=== PATIENT | male | born 1950 | race Caucasian/White ===

== ENCOUNTER → 2016-11-15 09:16 | Outpatient (CLI) | payer MEDICARE, BC ==
[2016-06-20 12:15] VITALS: BMI 19.5
[~2016-11-15 09:16] MED LIST: ALEVE220 MG PO; ATIVAN1 MG PO; DESERYL100 MG PO; HARVONI PO; IMURAN50 MG PO; INDERAL10 MG PO; KENALOG 0.1 % 115 GM TOPICAL; MUCINEX DM ER1 EAC1 PO; PEPCID40 MG PO; ZYRTEC10 MG PO
== END | disposition home or self-care (01) ==
LOC: D.MRI 09:16
DX: K74.60 Unspecified cirrhosis of liver (principal)

== ENCOUNTER → 2017-01-01 10:41 | Outpatient (CLI) | payer MEDICARE, BC ==
[2016-06-20 12:15] VITALS: BMI 19.5
== END | disposition home or self-care (01) ==
LOC: D.LAB 10:41 → D.CT 11:00
DX: R16.0 Hepatomegaly, not elsewhere classified (principal)

== ENCOUNTER 2017-01-18 08:00 | Outpatient (CLI) | payer MEDICARE, BC ==
[~2017-01-18 08:00] MED LIST changes: -DESERYL100 MG PO; -IMURAN50 MG PO
[2017-01-18] MEDS ORDERED: INDERAL10 MG PO (11:22)
[2017-01-18] MEDS ORDERED: DESERYL100 MG PO (11:23)
[2017-01-18] MEDS ORDERED: IMURAN50 MG PO (11:24)
[2017-01-18 17:11] VITALS: BMI 19.2
== END 2017-01-19 23:59 | disposition short-term general hospital (02) ==
LOC: D.RAD 08:00
DX: C22.0 Liver cell carcinoma (principal); B19.20 Unspecified viral hepatitis C without hepatic coma; K74.60 Unspecified cirrhosis of liver

== ENCOUNTER 2017-01-18 10:41 | Inpatient (IN) | payer MEDICARE, BC ==
[~2017-01-18] VITALS: Ht 175.3 cm; Wt 59.1 kg
[2017-01-18] MEDS ORDERED: INDERAL10 MG PO (11:22)
[2017-01-18] MEDS ORDERED: DESERYL100 MG PO (11:23)
[2017-01-18] MEDS ORDERED: IMURAN50 MG PO (11:24)
[2017-01-18 11:33] VITALS: BP 142/67; BMI 19.2
[2017-01-18 12:25] LABS: BASOPHILS 1.1 % (0.0-2.0); EOSINOPHILS 8.6 % (0-7); HEMATOCRIT 37.5 % (42.0-54.0); IMMATURE GRANULOCYTES 0.3 % (0-5); LYMPHOCYTES 29.2 % (15-50); MCH 35.6 pg (26.0-34.0); MCHC 34.7 g/dL (31.0-37.0); MCV 102.7 fL (80.0-100.0); MEAN PLATELET VOLUME 9.1 fL (7.4-10.4); MONOCYTES 10.5 % (2-11); NEUTROPHILS 50.3 % (40-80); RBC 3.65 10x6/uL (4.20-6.10); RDW 16.3 % (11.5-14.5); WBC 3.7 10x3/uL (4.8-10.8)
[2017-01-18 12:30] LABS: PLATELET COUNT 170 10x3/uL (130-400)
[2017-01-18 12:32] LABS: CALC OSMOLALITY 283 mosm/kg (275-300); CALCIUM 8.4 mg/dL (8.5-10.1); CARBON DIOXIDE 31.9 mmol/L (21.0-32.0); CHLORIDE - SERUM 106 mmol/L (98-107); CREATININE - SERUM 0.6 mg/dL (0.6-1.3); GLUCOSE 92 mg/dL (74-106); POTASSIUM - SERUM 4.3 mmol/L (3.5-5.1); SODIUM 142 mmol/L (136-145); UREA NITROGEN 14 mg/dL (7-18); eGFR NON AFRICAN AMERICAN > 90 mL/min (90-120)
[2017-01-18 12:33] LABS: INR 1.2 (0.85-1.17); PROTIME 15.1 SECONDS (11.6-15.0)
[2017-01-18 12:34] LABS: APTT 37.5 SECONDS (22.8-39.4)
[2017-01-18 16:08] VITALS: BP 148/71
[2017-01-18 16:12] VITALS: BP 148/71
[2017-01-18 17:11] VITALS: BP 148/71; Ht 175.3 cm; Wt 59.1 kg
--- NOTE | 2017-01-18 17:42 | NUR ---
RECIEVED TO ROOM 2214 VIA BED FROM S/P MICROWAVE ABLATION OF LIVER LESION DRESSING TO RIGHT UPPER FLANK CLEAN DRY AND INTACT ABDOMEN FIRM AND NON TENDER BSA X 4 QUADS. AWAKE AND ALERT ORIENTED X 3 LUNGS CLEAR.
--- NOTE | 2017-01-18 18:37 | NUR ---
DRESSING REMAINS CLEAN DRY AND INTACT NO ACUTE DISTRESS NOTED VOICES ALL NEEDS TO STAFF ALL ADLS PER STAFF MINIMAL ASSIST SPOUSE AT BEDSIDE. CALL LIGHT IN MREACH SIDE RAILS UP X 2
[2017-01-18 18:43] VITALS: BP 156/64
--- NOTE | 2017-01-18 19:00 | NUR ---
PATIENT IN BED WATCHING TV. HOB 40 DEGREES. AAOX4. RR EVEN AND UNLABORED. 0 S/S OF DISTRESS. DENIES PAIN AT THIS TIME. IV TO LEFT WRIST PATENT WITH NO REDNESS OR SWELLING. DRESSING TO RIGHT SIDE CDI. AT BEDSIDE. SRX2. BED LOW. CALL LIGHT WITHIN REACH.
[2017-01-18 19:20] VITALS: BP 135/56
--- NOTE | 2017-01-18 21:00 | NUR ---
ASSESSMENT COMPLETE. NIGHTTIME MEDS GIVEN. PATIENT'S HR IS 54. ASKED ABOUT HOLDING THE PROPRANOLOL. PATIENT STATED THAT HIS HR IS ALWAYS LOW AND HE NEVER HOLDS IT. GIVEN AT PATIENT REQUEST. NO OTHER NEEDS AT THIS TIME.
[2017-01-19] VITALS: BP 101/48
[2017-01-19 04:00] VITALS: BP 105/50
--- NOTE | 2017-01-19 04:13 | NUR ---
PATIENT SLEEPING WITH NO DISTRESS NOTED. CALL LIGHT WITHIN REACH.
--- NOTE | 2017-01-19 07:00 | NUR ---
REPORT RECIEVED ASSUMED CARE. PATIENT IN BED WITH IV INTACT. NO COMPLAINTS AT THIS TIME. CALL LIGHT WITHIN REACH.
[2017-01-19 08:21] VITALS: BP 119/51
[2017-01-19 11:51] VITALS: BP 137/50
--- NOTE | 2017-01-19 13:15 | NUR ---
PATIENT RECIEVED DC INSTRUCTIONS. VERBALIZED UNDERSTANDING. NO QUESTIONS AT THIS TIME. IV REMOVED WITH CATH TIP INTACT. FAMILY AT BEDSIDE. CALL LIGHT SERGIOIN AXEL.
== END 2017-01-19 14:58 | disposition home or self-care (01) | DRG 407 ==
LOC: D.OPS 10:41 → D.SP 13:00 → D.OPS 13:00 → D.MS 15:46 → D.OPS 15:47 → D.MS 15:47
PROVIDERS: ADMIT Radiology Diagnostic Radiology
PROC: 0F5 Hepatobiliary System and Pancreas, Destruction (ICD-10-PCS; principal; 2017-01-18 13:00)
DX: C22.0 Liver cell carcinoma (principal); B19.20 Unspecified viral hepatitis C without hepatic coma; K74.60 Unspecified cirrhosis of liver

== ENCOUNTER → 2017-01-29 09:43 | Outpatient (CLI) | payer MEDICARE, BC ==
[2017-01-18 17:11] VITALS: BMI 19.2
[~2017-01-29 09:43] MED LIST changes: +DESERYL100 MG PO; +IMURAN50 MG PO
== END | disposition home or self-care (01) ==
LOC: D.CT 09:43
DX: R91.8 Other nonspecific abnormal finding of lung field (principal)

== ENCOUNTER → 2017-02-04 10:47 | Outpatient (CLI) | payer MEDICARE, BC ==
[2017-02-04 11:26] LABS: HEMATOCRIT 37.3 % (42.0-54.0); HEMOGLOBIN 13.3 g/dL (13.5-17.5); MCH 36.4 pg (26.0-34.0); MCHC 35.7 g/dL (31.0-37.0); MCV 102.2 fL (80.0-100.0); MEAN PLATELET VOLUME 7.6 fL (7.4-10.4); NEUTROPHILS 53.3 % (40-80); PLATELET COUNT 169 10x3/uL (130-400); RBC 3.65 10x6/uL (4.20-6.10); RDW 16.9 % (11.5-14.5); WBC 3.4 10x3/uL (4.8-10.8)
== END | disposition home or self-care (01) ==
LOC: D.LAB 10:47
PROVIDERS: Dermatology
DX: L30.9 Dermatitis, unspecified (principal)

== ENCOUNTER → 2017-03-21 07:58 | Outpatient (CLI) | payer MEDICARE, BC | LOC: D.MRI 07:58 | DX: R16.0 Hepatomegaly, not elsewhere classified (principal) ==

== ENCOUNTER 2017-08-15 11:09 | Day surgery (SDC) | payer MEDICARE, BC ==
[2017-08-15 11:45] LABS: BASOPHILS 0.6 % (0-2); EOSINOPHILS 2.9 % (0-7); HEMATOCRIT 40.3 % (42.0-54.0); HEMOGLOBIN 14.1 g/dL (13.5-17.5); IMMATURE GRANULOCYTES 0.2 % (0-5); LYMPHOCYTES 33.3 % (15-50); MCH 33.8 pg (26.0-34.0); MCV 96.6 fL (80.0-100.0); MEAN PLATELET VOLUME 9.6 fL (7.4-10.4); MONOCYTES 10.4 % (2-11); NEUTROPHILS 52.6 % (40-80); RBC 4.17 10x6/uL (4.20-6.10); RDW 12.9 % (11.5-14.5); WBC 4.8 10x3/uL (4.8-10.8)
[2017-08-15 12:01] LABS: PLATELET COUNT 133 10x3/uL (130-400)
[2017-08-15 12:08] LABS: ALBUMIN 3.4 g/dL (3.4-5.0); ALKALINE PHOSPHATASE 111 U/L (46-116); ALT (SGPT) 15 U/L (10-68); BILIRUBIN - TOTAL 0.83 mg/dL (0.2-1.3); CALC OSMOLALITY 287 mosm/kg (275-300); CALCIUM 8.9 mg/dL (8.5-10.1); CHLORIDE - SERUM 107 mmol/L (98-107); CREATININE - SERUM 0.8 mg/dL (0.6-1.3); GLUCOSE 92 mg/dL (74-106); INR 1.12 (0.85-1.17); POTASSIUM - SERUM 4.3 mmol/L (3.5-5.1); PROTEIN - SERUM 7.5 g/dL (6.4-8.2); PROTIME 14.3 SECONDS (11.6-15.0); SODIUM 144 mmol/L (136-145); UREA NITROGEN 15 mg/dL (7-18); eGFR NON AFRICAN AMERICAN > 90 mL/min (90-120)
[2017-08-15 12:13] VITALS: BP 140/69; BMI 19.1
--- NOTE | 2017-08-15 14:44 | NUR ---
1420 DISCHARGE INSTRUCTIONS COMPLETE. PATIENT HAS NO QUESTIONS OR CONCERNS. NO PRESCRIPTIONS GIVEN. ESCORTED OUT BY VOLUNTEER.
--- NOTE | 2017-08-17 16:01 | OP ---
PATIENT NAME: DIANN DELGADO MEDICAL RECORD: [id number] :50 [facility] DATE: SURGEON: CODY POMPA MD DATE OF OPERATION: 08/15/2017 PROCEDURE: EGD with biopsy. REFERRING PHYSICIAN: Dr. Tian Teixeira. DISHWASHING MACHINE OPERATOR/ONCOLOGIST: Dr. Donn Grey. INDICATIONS: Mr. Delgado is a delightful 66-year-old gentleman with a history of hepatitis C, alcohol use, and cirrhosis. In 2015, he completed a 12-week course of Harvoni for his hepatitis C in the direction of Dr. Hopson. He has a history of hepatocellular carcinoma, which was treated with ablation in November 2015. His apprentice painter hand/oncologist is Dr. Kendell Grey. He quit drinking alcohol in October 2015. Last EGD on 06/20/2016 showed grade II to III esophageal varices, nonhemorrhagic, small hiatal hernia, gastropathy of portal hypertension, and nonhemorrhagic gastric varices. He is on prophylactic propranolol 10 mg p.o. t.i.d. He presents for outpatient surveillance EGD. PREMEDICATIONS: Total IV anesthesia (propofol 100 mg). INSTRUMENT: Olympus video gastroscope. PROCEDURE AND FINDINGS: After receiving informed consent, Mr. Delgado' posterior pharynx was anesthetized with Cetacaine spray. He was placed in left lateral decubitus position and sedated as per anesthesia. After achieving adequate level of sedation, gastroscope was introduced per orally and advanced to the duodenum without difficulty. In the esophagus, grade II to III esophageal varices were present from the mid to distal esophagus. There was no stigmata of recent bleeding. Small hiatal hernia was present. Gastric mucosa was notable for mild diffuse gastropathy of portal hypertension changes of the mucosa in the fundus and body of the stomach. There was minimal diffuse erythema in the antrum and antral biopsies were obtained to rule out Helicobacter pylori. The stomach had good peristaltic activity. In the fundus, were small nonhemorrhagic gastric varices. Pylorus was patent and competent. Duodenal mucosa was without erythema or ulcers, appeared normal through the second portion. The gastroscope was then withdrawn. Mr. Delgado tolerated the procedure well, no immediate complications. ASSESSMENT: 1. Grade II to III esophageal varices from the mid to distal esophagus, no stigmata of recent bleeding. 2. Small hiatal hernia. 3. Gastropathy of portal hypertension. 4. Gastritis. 5. Nonhemorrhagic mild gastric varices. RECOMMENDATIONS: 1. Followup histopathology. 2. Continue propranolol 10 mg p.o. t.i.d. and famotidine 40 mg p.o. b.i.d. 3. Surveillance EGD in 1 year. OPERATIVE REPORT [id number] DIANN DELGADO 4. Screening colonoscopy is recommended. TRANSINT:[id number] Voice Confirmation ID: [id number] DOCUMENT ID: [id number] CODY POMPA MD at 1601 CC: DONN GREY MD and TIAN TEIXEIRA MD [id number] DICTATION DATE: 08/15/17 1340 JEWELRY FACER: 08/15/[address] [facility] 08/15/17 [facility] [address] [place] [address]
== END 2017-08-15 14:20 | disposition home or self-care (01) ==
LOC: D.OPS 11:09
PROVIDERS: Internal Medicine Gastroenterology
DX: I85.10 Secondary esophageal varices without bleeding (principal); K74.60 Unspecified cirrhosis of liver; K29.70 Gastritis, unspecified, without bleeding; K44.9 Diaphragmatic hernia without obstruction or gangrene; K76.6 Portal hypertension; K31.89 Other diseases of stomach and duodenum; F17.200 Nicotine dependence, unspecified, uncomplicated; Z01.812 Encounter for preprocedural laboratory examination

== ENCOUNTER → 2017-08-29 07:55 | Outpatient (CLI) | payer MEDICARE, BC ==
[2017-08-15 12:13] VITALS: BMI 19.1
== END | disposition home or self-care (01) ==
LOC: D.MRI 07:55
DX: D69.6 Thrombocytopenia, unspecified (principal); K74.60 Unspecified cirrhosis of liver

== ENCOUNTER → 2017-09-11 11:19 | Outpatient (CLI) | payer MEDICARE, BC ==
[2017-08-15 12:13] VITALS: BMI 19.1
== END | disposition home or self-care (01) ==
LOC: D.CT 11:19
DX: R91.8 Other nonspecific abnormal finding of lung field (principal)

== ENCOUNTER → 2018-03-26 09:04 | Outpatient (CLI) | payer MEDICARE, BC | END | disposition home or self-care (01) | LOC: D.CT 03-24 09:30 | DX: R91.8 Other nonspecific abnormal finding of lung field (principal) ==

== ENCOUNTER → 2018-10-09 08:44 | Outpatient (CLI) | payer MEDICARE, BC | END | disposition home or self-care (01) | LOC: D.CT 08:44 | DX: R91.8 Other nonspecific abnormal finding of lung field (principal) ==

== ENCOUNTER 2018-12-04 11:05 | Day surgery (SDC) | payer MEDICARE, BC ==
[~2018-12-04] VITALS: Ht 175.3 cm; Wt 59.1 kg
[2018-12-04 11:51] LABS: INR 1.16 (0.85-1.17); PROTIME 14.3 SECONDS (11.6-15.0)
[2018-12-04 11:52] LABS: APTT 35.1 SECONDS (22.8-39.4)
[2018-12-04 11:56] LABS: ALBUMIN 3.5 g/dL (3.4-5.0); ALKALINE PHOSPHATASE 70 U/L (46-116); ALT (SGPT) 19 U/L (10-68); BILIRUBIN - TOTAL 0.69 mg/dL (0.2-1.3); CALC OSMOLALITY 282 mosm/kg (275-300); CALCIUM 8.3 mg/dL (8.5-10.1); CARBON DIOXIDE 30.9 mmol/L (21.0-32.0); CHLORIDE - SERUM 104 mmol/L (98-107); CREATININE - SERUM 0.8 mg/dL (0.6-1.3); GLUCOSE 92 mg/dL (74-106); POTASSIUM - SERUM 4.5 mmol/L (3.5-5.1); PROTEIN - SERUM 7.6 g/dL (6.4-8.2); SODIUM 141 mmol/L (136-145); UREA NITROGEN 17 mg/dL (7-18); eGFR NON AFRICAN AMERICAN > 90 mL/min (90-120)
[2018-12-04 11:59] LABS: HEMATOCRIT 37.6 % (42.0-54.0); HEMOGLOBIN 13.2 g/dL (13.5-17.5); MCH 33.2 pg (26.0-34.0); MCHC 35.1 g/dL (31.0-37.0); MCV 94.7 fL (80.0-100.0); MEAN PLATELET VOLUME 8.9 fL (7.4-10.4); RBC 3.97 10x6/uL (4.20-6.10); RDW 13.4 % (11.5-14.5); WBC 4.8 10x3/uL (4.8-10.8)
[2018-12-04 12:55] VITALS: BP 150/75; Ht 175.3 cm; Wt 59.1 kg
--- NOTE | 2018-12-04 15:10 | NUR ---
REC'D FROM GI LAB. FAMILY AT BEDSIDE. APPLE JUICE BROUGHT TO PATIENT WITH STERLING DONALDSON. DR POMPA TALKING WITH PT AND SPOUSE.
--- NOTE | 2018-12-04 16:10 | NUR ---
TOLERATED DIET. IV DC'D WITH CATHETER INTACT. WRITTEN AND VERBAL DC INST. GIVEN TO PT. VERBALIZED UNDERSTANDING.
--- NOTE | 2018-12-04 16:15 | NUR ---
DC'D HOME WITH FAMILY VIA PRIVATE VEHICLE . TAKEN TO VEHICLE VIA WC. STABLE AT TIME OF DC.
--- NOTE | 2018-12-05 13:11 | OP ---
PATIENT NAME: DIANN DELGADO MEDICAL RECORD: [id number] :50 LOCATION:[facility] ADMISSION DATE: SURGEON: CODY POMPA MD DATE OF OPERATION: 12/04/2018 PROCEDURE: EGD with biopsy and ablation of gastric angioectasia. PRIMARY CARE PHYSICIAN: Tian Teixeira MD PUGGER HELPER/ONCOLOGIST: Donn Grey MD INDICATIONS: Mr. Delgado is a delightful 68-year-old gentleman with history of hepatitis C, alcohol use, and cirrhosis. He has completed a 12-week course of Harvoni for hepatitis C (Dr. Hopson). He has a history of hepatocellular carcinoma, which was treated with ablation in November 2015. He is followed by Dr. Kendell Grey. He quit drinking alcohol in October 2015. On his last EGD of 08/15/2017, he was noted to have grade II to III esophageal varices, small hiatal hernia, gastropathy of portal hypertension, gastritis, and nonhemorrhagic mild gastric varices. He continues on propranolol 10 mg p.o. t.i.d. and for famotidine 40 mg p.o. b.i.d. He has had no symptoms of nausea, vomiting, melena, hematochezia, abdominal pain, increased abdominal girth, or lower extremity edema or swelling. He presents for outpatient surveillance EGD. PREMEDICATIONS: Total IV anesthesia (propofol 160 mg). INSTRUMENT: Olympus video gastroscope and a Gold probe with injectable needle. PROCEDURE AND FINDINGS: After receiving informed consent, Mr. Delgado' posterior pharynx was anesthetized with Cetacaine spray. He was placed in left lateral decubitus position and sedated as per anesthesia. After achieving an adequate level of sedation, gastroscope was introduced per orally and advanced into the duodenum without difficulty. The esophageal mucosa was without erythema or ulcers. Grade II to III esophageal varices were present. There were no signs of bleeding nor stigmata of recent bleeding. A small hiatal hernia was present. Gastric mucosa was notable for reticulated pattern in the fundus and body of the stomach, consistent with gastropathy of portal hypertension. In the cardia, were grade II to III gastric varices, nonhemorrhagic. There was mild diffuse erythema in the antrum and antral biopsies were obtained to rule out Helicobacter pylori. In the distal body of the stomach, was a small angioectasia associated with brown pigment (stigmata of recent bleeding) and was cauterized successfully with a Gold probe. Pylorus was patent and competent. Duodenal mucosa was without erythema or ulcers, appeared normal through the second portion. Gastroscope was then withdrawn. Mr. Delgado tolerated the procedure well. No known complications. ASSESSMENT: 1. Grade II to III esophageal varices, stable. 2. Small hiatal hernia. 3. Gastric varices. 4. Gastric angioectasia, status post ablation with Gold probe. 5. Mild gastritis involving the antrum. 6. Gastropathy of portal hypertension. OPERATIVE REPORT [id number] DIANN DELGADO RECOMMENDATIONS: Continue propranolol 10 mg p.o. t.i.d. and famotidine 40 mg p.o. b.i.d. Surveillance EGD in one year. TRANSINT:[id number] Voice Confirmation ID: [id number] DOCUMENT ID: [id number] CODY POMPA MD at 1311 CC: DONN GREY MD and TIAN TEIXEIRA MD [id number] DICTATION DATE: 12/04/18 1511 PEOPLESOFT ANALYST: 12/04/18 1806 [facility] 12/04/18 [id number] [place] [address]
== END 2018-12-04 16:15 | disposition home or self-care (01) ==
LOC: D.OPS 11:05
PROVIDERS: Anesthesiology
DX: K70.30 Alcoholic cirrhosis of liver without ascites (principal); B19.20 Unspecified viral hepatitis C without hepatic coma; I85.10 Secondary esophageal varices without bleeding; K44.9 Diaphragmatic hernia without obstruction or gangrene; I86.4 Gastric varices; K31.819 Angiodysplasia of stomach and duodenum without bleeding; K29.70 Gastritis, unspecified, without bleeding; K76.6 Portal hypertension; K31.89 Other diseases of stomach and duodenum; Z01.812 Encounter for preprocedural laboratory examination

== ENCOUNTER → 2019-07-15 09:19 | Outpatient (CLI) | payer MEDICARE, BC ==
[2018-12-04 12:55] VITALS: BMI 19.2
== END | disposition home or self-care (01) ==
LOC: D.CT 09:19
PROVIDERS: ATTEND Internal Medicine Pulmonary Disease
DX: R91.1 Solitary pulmonary nodule (principal)

== ENCOUNTER → 2020-04-01 08:21 | Outpatient (CLI) | payer MEDICARE, BC ==
[2018-12-04 12:55] VITALS: BMI 19.2
== END | disposition home or self-care (01) ==
LOC: D.MRI 08:21
PROVIDERS: ATTEND Orthopaedic Surgery
DX: S83.231A Complex tear of medial meniscus, current injury, right knee, initial encounter (principal)

== ENCOUNTER 2020-04-23 09:22 | Inpatient (IN) | payer MEDICARE, BC ==
[~2020-04-23] VITALS: Ht 175.3 cm; Wt 54.5 kg
--- NOTE | 2020-04-23 10:42 | NUR ---
PT SPOUSE AT BEDSIDE. PT AWAKE AND ALERT. NO S/S OF ACUTE DISTRESS NOTED AT THIS TIME.
[2020-04-23 10:47] LABS: BASOPHILS 0.2 % (0-2); EOSINOPHILS 0.1 % (0-7); HEMATOCRIT 39.4 % (42.0-54.0); HEMOGLOBIN 13.4 g/dL (13.5-17.5); IMMATURE GRANULOCYTES 0.2 % (0-5); LYMPHOCYTES 11.7 % (15-50); MCH 31.8 pg (26.0-34.0); MCV 93.6 fL (80.0-100.0); MEAN PLATELET VOLUME 8.9 fL (7.4-10.4); MONOCYTES 11.6 % (2-11); NEUTROPHILS 76.2 % (40-80); PLATELET COUNT 199 10x3/uL (130-400); RBC 4.21 10x6/uL (4.20-6.10); RDW 13.1 % (11.5-14.5); WBC 9.1 10x3/uL (4.8-10.8)
[2020-04-23 10:56] LABS: CALC OSMOLALITY 280 mosm/kg (275-300); CALCIUM 8.8 mg/dL (8.5-10.1); CHLORIDE - SERUM 104 mmol/L (98-107); CREATININE - SERUM 0.8 mg/dL (0.6-1.3); GLUCOSE 93 mg/dL (74-106); POTASSIUM - SERUM 3.7 mmol/L (3.5-5.1); SODIUM 140 mmol/L (136-145); UREA NITROGEN 17 mg/dL (7-18); eGFR NON AFRICAN AMERICAN > 90 mL/min (90-120)
[2020-04-23 11:02] LABS: ALBUMIN 3.6 g/dL (3.4-5.0); ALKALINE PHOSPHATASE 105 U/L (30-120); ALT (SGPT) 26 U/L (10-68); BILIRUBIN - TOTAL 0.68 mg/dL (0.2-1.3); PROTEIN - SERUM 7.6 g/dL (6.4-8.2)
[2020-04-23 11:04] LABS: INR 1.08 (0.85-1.17)
--- NOTE | 2020-04-23 11:18 | NUR ---
DR ELLIS AT PT BEDSIDE
--- NOTE | 2020-04-23 12:27 | NUR ---
SURGICAL CONSENTS SIGNED AND WITNESSED AT THIS TIME
--- NOTE | 2020-04-23 13:38 | NUR ---
PT LEFT ED VIA STRETCHER FOR OR
[2020-04-23 16:21] VITALS: BP 102/56
[2020-04-23 17:20] VITALS: BP 102/56; Ht 175.3 cm; Wt 54.5 kg
[2020-04-23 20:00] VITALS: BP 109/61
--- NOTE | 2020-04-23 20:30 | NUR ---
AWAKE,ALERT,NO COMPLAITNS VOICED. RESP EVEN AND UNALBORED. NO DISTRESS NOTED. DRESSING INTACT TO RIGHT HIP WITHOUT EDEMA OR REDNESS NOTED. IV TO LFA INTACT WITHOUT REDNESS OR EDEMA. CL IN REACH
[2020-04-24] VITALS: BP 93/61
[2020-04-24 04:00] VITALS: BP 114/70
--- NOTE | 2020-04-24 04:26 | NUR ---
I have reviewed this patient and I concur with the Shift Assessment completed by the Licensed Practical Nurse today this shift.
[2020-04-24 07:25] LABS: BASOPHILS 0 % (0-2); EOSINOPHILS 0 % (0-7); IMMATURE GRANULOCYTES 0.2 % (0-5); LYMPHOCYTES 6.4 % (15-50); MCHC 32.8 g/dL (31.0-37.0); MCV 94.4 fL (80.0-100.0); MONOCYTES 9.8 % (2-11); NEUTROPHILS 83.6 % (40-80); PLATELET COUNT 188 10x3/uL (130-400); RBC 3.39 10x6/uL (4.20-6.10); RDW 13.3 % (11.5-14.5)
[2020-04-24 07:32] LABS: HEMOGLOBIN 10.5 g/dL (13.5-17.5)
[2020-04-24 07:34] LABS: CALC OSMOLALITY 283 mosm/kg (275-300); CALCIUM 7.6 mg/dL (8.5-10.1); CARBON DIOXIDE 28.8 mmol/L (21.0-32.0); CHLORIDE - SERUM 104 mmol/L (98-107); CREATININE - SERUM 0.8 mg/dL (0.6-1.3); POTASSIUM - SERUM 3.8 mmol/L (3.5-5.1); SODIUM 139 mmol/L (136-145); UREA NITROGEN 21 mg/dL (7-18); eGFR NON AFRICAN AMERICAN > 90 mL/min (90-120)
--- NOTE | 2020-04-24 07:40 | OP ---
PATIENT NAME: DIANN DELGADO MEDICAL RECORD: [id number] :50 LOCATION:[facility] ADMISSION DATE:04/23/20 SURGEON: LENIN ELLIS DO DATE OF OPERATION: 04/23/2020 PROCEDURE PERFORMED: Right total hip arthroplasty. PREOPERATIVE DIAGNOSIS: Right femoral neck fracture. POSTOPERATIVE DIAGNOSIS: Right femoral neck fracture. INDICATIONS: Mr. Delgado is a 69-year-old male who fell after his right knee gave way on to the right leg and had femoral neck fracture, this was last night, and brought to the ER today and x-rays were taken and seen a displaced femoral neck fracture. I saw him in the Emergency Room and informed him we would try to do a total hip on this due to the fact that it was a displaced femoral neck and it would be the best option to get him up and moving. He was okay with that. 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 He is aware of the risks including infection, bleeding, damage to nerves and vessels in the area continued pain, fracture, leg length discrepancy and blood clots, and even and he signed the consent. SURGEON: Lenin Ellis DO DESCRIPTION OF PROCEDURE: The patient was taken to operative suite and laid in supine position, given general anesthetic and intubated. He was given 2 grams of Ancef preoperatively. He was then moved to the Marianna table and positioned. The right hip was then prepped and draped in sterile fashion. Time out was performed. Everyone was in agreement with the correct side, site, patient, and procedure. He then received a gram of TXA. We then made the incision along the tensor fascia caryn muscle belly. Careful dissection made down to the muscle belly and fascia. The fascia of the tensor fascia caryn was taken anterior and the muscle belly posterior and opened up the rectus interval. Rectus was then taken medially, tensor fascia caryn laterally and then the ascending branch of lateral femoral circumflex was encountered and tied off and then coagulated with the Aquamantys then cut. I then exposed the neck of the femur and opened up the capsule and sucked out any blood that was there from the femoral neck fracture. I then exposed the femoral neck and made a neck cut and removed that and the head. I then put in the Charnley and removed the labrum as well as the pulvinar and reamed from a 46 up to 54 first impacted the cup and did not have any bite. His bone was extremely soft, so I went to a 56 cup and again it did not stay, actually we had to do it. I reamed it to 57 just barely and put in a 58 OsseoTi acetabular shell and then put a 33-mm screw in the superior posterior acetabulum through the cup and held it down nicely. He had good fixation with that and that the cup was very tightly fit. I then put in the liner impacted in place to expose the femur. I used the canal finder Archive cutter and then broached from a 4 up to a 15; 15 was then reduced with a -6 neck that was the best leg length, we get the closest, could not put a small stem in as to compromise stability, but it was closest we could get to, equal leg lengths to the left one. I then removed that and put in the actual stem and then put my 6 dual mobility head and neck and reduced it. X-rays were taken and seen to be in good position. No fracture is seen in the stem. It was then irrigated with a 10% povidone iodine and 500 mL of normal saline solution and set for approximately 2 minutes and then irrigated with a liter of normal saline. I then closed the capsule with #2 OPERATIVE REPORT [id number] DIANN DELGADO Ethibond in a vxfcvp-yf-ichhl fashion and put in Lisa and vancomycin and tobramycin powder and then closed the tensor fascia caryn fascia with #1 Vicryl in phgoqi-iq-hypel and then a running locking stitch. Moe Murray, certified surgical cutting table operator first assisted me throughout the procedure. I assisted with retraction and tying off vessels. He also closed the skin with 2-0 Vicryl in inverted interrupted fashion, 4-0 Monocryl ran on the skin and Prineo glue placed on the skin. He was then awakened and taken to recovery in stable condition. Blood loss approximately 150 mL. COMPLICATIONS: None. TRANSINT:[id number] Voice Confirmation ID: [id number] DOCUMENT ID: [id number] LENIN ELLIS DO at 0746 CC: [id number] DICTATION DATE: 04/23/20 1553 FIBER DESIGNER: 04/23/20 8966 ADM IN [facility] [address] [facility], [facility]
[2020-04-24 07:45] LABS: GLUCOSE 146 mg/dL (74-106)
--- NOTE | 2020-04-24 09:00 | NUR ---
ALERT AND ORIENTED X4. DRESSING DRY AND INTACT TO RIGHT HIP. AMBULATES WITH WALKER WITH SBA. IVF INFUSING AT PRESCRIBED RATE. TELEMETRY SINUS RHYTHEM 69HR. DENIES ANY CHEST PAIN OR DISCOMFORT. PAIN 5/10 CONTROLLED WITH OXYIR 5MG AND EFFECTIVE. PEDAL PULSES NOTED W/O EDEMA. ENOURAGED TO USE CALL LIGHT FOR ASSSIT.
[2020-04-24 09:35] VITALS: BP 118/63
[2020-04-24] MEDS ORDERED: ELIQUIS2.5 MG PO (09:52)
[2020-04-24] MEDS ORDERED: VISTARIL50 MG PO (09:52)
[2020-04-24] MEDS ORDERED: OXYCODONE HCL5 M1 PO (09:53)
[2020-04-24 12:31] VITALS: BP 111/55
[2020-04-24 16:17] VITALS: BP 117/60
[2020-04-24 21:23] VITALS: BP 111/62
[2020-04-25 00:56] VITALS: BP 93/50
--- NOTE | 2020-04-25 03:42 | NUR ---
I have reviewed this patient and I concur with the Shift Assessment completed by the Licensed Practical Nurse today this shift.
[2020-04-25 06:17] LABS: BASOPHILS 0.1 % (0-2); EOSINOPHILS 0 % (0-7); HEMATOCRIT 28.1 % (42.0-54.0); HEMOGLOBIN 9.2 g/dL (13.5-17.5); IMMATURE GRANULOCYTES 0.3 % (0-5); MCH 31.3 pg (26.0-34.0); MCHC 32.7 g/dL (31.0-37.0); MCV 95.6 fL (80.0-100.0); MEAN PLATELET VOLUME 9.5 fL (7.4-10.4); MONOCYTES 13.7 % (2-11); NEUTROPHILS 71.9 % (40-80); RBC 2.94 10x6/uL (4.20-6.10); RDW 13.5 % (11.5-14.5)
[2020-04-25 06:22] LABS: PLATELET COUNT 148 10x3/uL (130-400); WBC 9.3 10x3/uL (4.8-10.8)
[2020-04-25 06:39] LABS: ALKALINE PHOSPHATASE 72 U/L (30-120); BILIRUBIN - TOTAL 0.42 mg/dL (0.2-1.3); CALC OSMOLALITY 281 mosm/kg (275-300); CALCIUM 7.5 mg/dL (8.5-10.1); CHLORIDE - SERUM 107 mmol/L (98-107); CREATININE - SERUM 0.8 mg/dL (0.6-1.3); GLUCOSE 118 mg/dL (74-106); POTASSIUM - SERUM 3.6 mmol/L (3.5-5.1); PROTEIN - SERUM 5.7 g/dL (6.4-8.2); SODIUM 140 mmol/L (136-145); UREA NITROGEN 18 mg/dL (7-18); eGFR NON AFRICAN AMERICAN > 90 mL/min (90-120)
[2020-04-25 06:44] LABS: ALBUMIN 2.6 g/dL (3.4-5.0); ALT (SGPT) 14 U/L (10-68)
[2020-04-25 06:47] VITALS: BP 106/57
--- NOTE | 2020-04-25 07:30 | NUR ---
REC'D IN ROOM AWAKE AND ALERT. RESP EVEN AND UNLABORED WITH NO DISTRESS NOTED. CAN EXPRESS NEEDS AND WANTS. NO C/O NOTED OR VOICED. ASSESSMENT COMPLETED. C/L IN REACH AT BEDSIDE.
[2020-04-25 08:38] VITALS: BP 143/61
[2020-04-25 14:02] VITALS: BP 172/54
--- NOTE | 2020-04-25 15:53 | NUR ---
I have reviewed this patient and I concur with the Shift Assessment completed by the Licensed Practical Nurse today this shift.
--- NOTE | 2020-04-25 16:18 | NUR ---
OT NOTE: PT COMPLETED BED MOB TASKS WITH SBA. PT EDUCATED ON AE. PT IS COOPERATIVE. [id number] THANK YOU,MOIZ BHAGAT
[2020-04-25] MEDS ORDERED: TESSALON PERLE100 MG PO (16:23)
[2020-04-25] MEDS ORDERED: COLACE100 MG PO (16:23)
[2020-04-25] MEDS ORDERED: MUCINEX600 MG PO (16:23)
--- NOTE | 2020-04-25 16:46 | MORECARE ---
CASE MANAGEMENT DISCHARGE SUMMARY PATIENT: DIANN MENESES UNIT: [id number] ADM DATE: 04/23/20 AGE: 69 : 50 SEX: M ROOM/BED: D.2229 AUTHOR: SHANTA DAS PHYSICIAN: REFERRING PHYSICIAN: LILIANA WISE MD DATE OF SERVICE: 04/25/20 Discharge Plan Patient Name: DIANN MENESES Facility: [facility]:[place] : 1950 Planned Disposition: Anticipated Discharge Date: Discharge Date: Expected LOS: Initial Reviewer: [email or web address] Initial Review Date: 04/25/2020 Generated: 04/25/20 5:46 pm External Providers [facility] Next Contact Date: Service Request Date: Service Type: Resolution: Reviewer: Comments: Patient Name: DIANN MENESES Page [id number] at 1646 All edits/amendments must be made on the electronic document DICTATION DATE: 04/25/20 164 LIME KILN OPERATOR: CLINT 04/25/201645 RPT#: [id number] DC DATE: STATUS: ADM IN [facility] [address] [place] [address] END OF REPORT
--- NOTE | 2020-04-25 17:00 | MORECARE ---
CASE MANAGEMENT DISCHARGE SUMMARY PATIENT: DIANN MENESES UNIT: [id number] ADM DATE: 04/23/20 AGE: 69 : 50 SEX: M ROOM/BED: D.2229 AUTHOR: SHANTA DAS PHYSICIAN: REFERRING PHYSICIAN: LILIANA WISE MD DATE OF SERVICE: 04/25/20 Discharge Plan Patient Name: DIANN MENESES Facility: [facility]:[place] : 1950 Planned Disposition: Anticipated Discharge Date: Discharge Date: Expected LOS: Initial Reviewer: [email or web address] Initial Review Date: 04/25/2020 Generated: 04/25/20 5:59 pm Comments DCP- Discharge Planning Updated by [email or web address]: Ashley Black on 04/25/20 3:[address] Patient Name: DIANN MENESES Admission Status: ER Accout number: [id number] Admission Date: 04-23-2020 : 1950 Admission Diagnosis: Attending: BILLIE, Current LOS: 2 Anticipated DC Date: Planned Disposition: Primary Insurance: MEDICARE A & B Discharge Planning Comments: CM met with patient at bedside after explaining CM role and obtaining verbal consent. CM discussed availability / needs of home health, REHAB and medical equipment. NEEDS WALKER, SAE SIGNED FOR [facility]. WILL ALSO NEED OUTPATIENT PT. WOULD PREFER PT HERE, OFFICE IS CLOSED, I WILL CALL AND SCHEDULE IT TOMORROW. [facility] IS BRINGING THE WALKER TO HIS ROOM. IMM SIGNED. CM TO FOLLOW AND ASSIST NEEDED. Sales Assistant Entertainment And Media: Ashley Black Coverage Notice Reviewer: [email or web address] Arlene lBack Notice Issued Date-Time: 04/25/2020 16:59 Notice Type: IM Discharge Notice Notice Delivered To: Patient Relationship to Patient: Engineered Wood Designer Name: Delivery Method: HAND - Hand Delivered Anel Days: Prior Verbal Notification: Recipient Understood Notice: Yes Recipient Signature: Yes Med Rec Note Co-signed by Attending: Coverage Notice Comment: Reviewer: [id number] Arlene Black Notice Issued Date-Time: 04/25/2020 16:59 Notice Type: Patient Choice Letter Notice Delivered To: Patient Relationship to Patient: Engineered Wood Designer Name: Delivery Method: HAND - Hand Delivered Anel Days: Prior Verbal Notification: Recipient Understood Notice: Yes Recipient Signature: Yes Med Rec Note Co-signed by Attending: Coverage Notice Comment: [facility], AND OUTPATIENT PT HERE AT [facility] Last DP export: 04/25/20 3:46 p Patient Name: DIANN MENESES Page 19448 at 1700 All edits/amendments must be made on the electronic document DICTATION DATE: 04/25/201658 SURVEY TECHNICIAN: CLINT 04/25/201658 RPT#: [id number] DC DATE: STATUS: ADM IN [facility] [address] [place] [address] END OF REPORT
[2020-04-25 17:02] VITALS: BP 137/58
--- NOTE | 2020-04-25 18:26 | NUR ---
DC HOME AT THIS TIME VOICE UNDERSTANDING OF DC ORDERS WELL HIS . DRESSING CHANGED TO RIGHT HIP. PT LEFT WITH ALL PERSONAL BELONGING. IV DC. STABLE CONDITION UPON DEPARTURE.
== END 2020-04-25 18:29 | disposition home or self-care (01) | DRG 470 ==
LOC: D.ER 09:22 → D.MS 11:37
PROVIDERS: Family Medicine; Orthopaedic Surgery; ADMIT Family Medicine; ATTEND Family Medicine
PROC: 0SR90JZ Replacement of Right Hip Joint with Synthetic Substitute, Open Approach (ICD-10-PCS; principal; 2020-04-23 12:50)
DX: S72.001A Fracture of unspecified part of neck of right femur, initial encounter for closed fracture (principal); B19.9 Unspecified viral hepatitis without hepatic coma; K74.60 Unspecified cirrhosis of liver; W19.XXXA Unspecified fall, initial encounter; J44.9 Chronic obstructive pulmonary disease, unspecified; K21.9 Gastro-esophageal reflux disease without esophagitis

== ENCOUNTER 2020-06-07 05:25 | Day surgery (SDC) | payer MEDICARE, BC ==
[2020-06-06 11:49] LABS: BASOPHILS 0.7 % (0-2); EOSINOPHILS 7.8 % (0-7); HEMATOCRIT 35.6 % (42.0-54.0); HEMOGLOBIN 11.5 g/dL (13.5-17.5); IMMATURE GRANULOCYTES 0.2 % (0-5); LYMPHOCYTES 19.8 % (15-50); MCH 29.2 pg (26.0-34.0); MCHC 32.3 g/dL (31.0-37.0); MCV 90.4 fL (80.0-100.0); MEAN PLATELET VOLUME 8.5 fL (7.4-10.4); MONOCYTES 9.7 % (2-11); NEUTROPHILS 61.8 % (40-80); PLATELET COUNT 177 10x3/uL (130-400); RBC 3.94 10x6/uL (4.20-6.10); RDW 12.9 % (11.5-14.5); WBC 5.8 10x3/uL (4.8-10.8)
[2020-06-06 12:00] LABS: INR 1.09 (0.85-1.17)
[2020-06-06 12:03] LABS: ALBUMIN 3.4 g/dL (3.4-5.0); ALKALINE PHOSPHATASE 154 U/L (30-120); ALT (SGPT) 15 U/L (10-68); BILIRUBIN - TOTAL 0.36 mg/dL (0.2-1.3); CALC OSMOLALITY 280 mosm/kg (275-300); CALCIUM 8.3 mg/dL (8.5-10.1); CARBON DIOXIDE 31.4 mmol/L (21.0-32.0); CHLORIDE - SERUM 103 mmol/L (98-107); GLUCOSE 99 mg/dL (74-106); POTASSIUM - SERUM 4.9 mmol/L (3.5-5.1); PROTEIN - SERUM 7.6 g/dL (6.4-8.2); SODIUM 138 mmol/L (136-145); UREA NITROGEN 26 mg/dL (7-18); eGFR NON AFRICAN AMERICAN 79 mL/min (90-120)
[~2020-06-07] VITALS: Ht 175.3 cm; Wt 53.5 kg
[~2020-06-07 05:25] MED LIST changes: +COLACE100 MG PO; +ELIQUIS2.5 MG PO; +HYDROCODON-ACE1 EAC7; +MUCINEX600 MG PO; +OXYCODONE HCL5 M1 PO; +TESSALON PERLE100 MG PO; +VISTARIL50 MG PO
[2020-06-07 06:11] VITALS: BP 137/65; Ht 175.3 cm; Wt 53.5 kg
--- NOTE | 2020-06-08 09:02 | OP ---
PATIENT NAME: DIANN DELGADO MEDICAL RECORD: [id number] :50 [facility] DATE: SURGEON: LENIN ELLIS DO DATE OF OPERATION: 06/07/2020 PROCEDURE PERFORMED: Right knee arthroscopy with partial medial and partial lateral meniscectomy, and plica resection. PREOPERATIVE DIAGNOSIS: Right knee medial meniscus tear. POSTOPERATIVE DIAGNOSES: Right knee medial meniscus tear with lateral meniscal tear and plica band syndrome. INDICATIONS: Mr. Delgado is a 69-year-old male who had a right hip fracture a few months ago. He had been doing well with that. He had had an MRI and he was ready for surgery for that prior to falling. He was supposed to have it on 05/05, if I remember correctly, for a knee scope and then partial medial meniscectomy. After the hip healed. He was ready to have the knee scope done. I informed of the risks including infection, bleeding, damage to nerves and vessels, need for further surgery, continued pain, retear of the meniscus and blood clots, and even . He signed the consent. SURGEON: Lenin Ellis DO DESCRIPTION OF PROCEDURE: The patient was taken to the operative suite, laid in supine position, given general anesthetic, given a gram of Ancef. The right lower extremity was prepped and draped in sterile fashion. A timeout was performed and everyone was in agreement with the correct side, site, patient and procedure. After sedating, LMA was placed. The timeout had been performed and then lateral portal was established with an 11-blade scalpel and trocar was entered into the joint, I then entered the camera and inspected the suprapatellar pouch, no loose body was seen in the lateral gutter or medial gutter and then flexed the knee and medial portal was established with an 18-gauge spinal needle and 11-blade scalpel proceed. Then entered the trocar into the joint. I then used the nerve probe through the medial portal and probed the medial meniscus. There was a very small tear noted on the middle portion of the medial meniscus. I trimmed this out with an upbiter and shaver, shaved it back to a stable point. I then inspected the rest of the meniscus on superior and inferior size and did not see a tear anywhere else. 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 The ACL was in good position. I then parked the nerve probe in the notch and joihlp-tz-jywsag the knee and then entered the lateral joint, the lateral cartilage was good except for the plateau again seeing the grade II chondromalacia of the tibial plateau on the lateral side. I probed in and that did not come loose, just had a fissure, he did have the small tear and the middle horn of the lateral meniscus was then trimmed out with a shaver. I then went to the patellofemoral joint and saw the plica and resected it with a shaver. The patellofemoral joint did not have any cartilage damage. I then turned the suction on, water off and removed any excess fluid. I then sutured the portal sites with 4-0 Monocryl in inverted interrupted fashion. Steri-Strips, Adaptic, 4 x 4's, ABD, Webril, Jericho wrap and DELMI stockings in place on the knee. He was then awakened and taken to recovery in stable condition. BLOOD LOSS: Minimal. OPERATIVE REPORT [id number] DIANN DELGADO COMPLICATIONS: None. TRANSINT:[id number] Voice Confirmation ID: [id number] DOCUMENT ID: [id number] LENIN ELLIS DO at 0902 CC: [id number] DICTATION DATE: 06/07/20 1546 DRY WALL INSTALLER: 06/08/20 0117 [facility] 06/07/20 [facility] [address] [place] [address]
== END 2020-06-07 09:10 | disposition home or self-care (01) ==
LOC: D.OPS 05:25 → D.PAN 07:00 → D.OPS 07:00 → D.PAN 13:40 → D.OPS 16:15
PROVIDERS: Anesthesiology; ATTEND Orthopaedic Surgery
DX: S83.241A Other tear of medial meniscus, current injury, right knee, initial encounter (principal); X58.XXXA Exposure to other specified factors, initial encounter; M67.51 Plica syndrome, right knee; S72.001A Fracture of unspecified part of neck of right femur, initial encounter for closed fracture

== ENCOUNTER → 2020-07-13 12:56 | Outpatient (CLI) | payer MEDICARE, BC ==
[2020-06-07 06:11] VITALS: BMI 17.4
== END | disposition home or self-care (01) ==
LOC: D.CT 12:56
PROVIDERS: ATTEND Internal Medicine Pulmonary Disease
DX: R91.8 Other nonspecific abnormal finding of lung field (principal)